=== PATIENT | female | born 1985 | race Two or more races ===

== ENCOUNTER 2022-07-30 11:42 | Inpatient (IN) | payer MEDICAID ==
[~2022-07-30] VITALS: Ht 165.1 cm; Wt 143.1 kg
[2022-07-30] MEDS ORDERED: MORPHINE SULFATE 4 MG/ML SYR/VIAL IV ONE (12:00)
[2022-07-30] MEDS ORDERED: SODIUM CHLORIDE 0.9% 1,000 ML IVB ONE (12:00)
[2022-07-30] MEDS ORDERED: PANTOPRAZOLE 40 MG/10 ML VIAL INJ IV ONE (12:00)
[2022-07-30] MEDS ORDERED: ONDANSETRON HCL 4 MG/2 ML VIAL IV ONE (12:00)
[2022-07-30 13:31] LABS: Basophils # (auto) 0.1 10 ^3/uL (0-0.2); Basophils % (auto) 1.1 % (0.0-2.0); Eosinophils # (auto) 0.1 10 ^3/uL (0-0.8); Eosinophils % (auto) 1.1 % (0.0-7.0); Hematocrit 42.9 % (36.0-46.0); Hemoglobin 14.1 g/dL (12.2-16.2); Lymphocytes # (auto) 2.6 10 ^3/uL (0.4-5.4); Lymphocytes % (auto) 29.1 % (10.0-50.0); Mean Corpuscular Hemoglobin 28.8 pg (28.0-32.0); Mean Corpuscular Hgb Conc. 32.8 g/dL (32.0-36.0); Mean Corpuscular Volume 87.7 fL (80.0-100.0); Monocytes # (auto) 0.5 10 ^3/uL (0-1.3); Monocytes % (auto) 5.2 % (0.0-12.0); Neutrophils # (auto) 5.6 10 ^3/uL (1.6-8.6); Neutrophils % (auto) 63.5 % (37.0-80.0); Nucleated Red Blood Cells % 0.2 %; Red Blood Cells 4.89 10^6/uL (4.0-5.20); Red Cell Distribution Width 14.3 % (11.8-14.3); White Blood Cell 8.8 10^3/uL (4.4-10.8)
[2022-07-30 13:37] LABS: Urine Bacteria FEW /hpf (None Seen); Urine Blood Negative /uL (Negative); Urine Specific Gravity 1.024 (1.001-1.035); Urine WBC 4 /hpf (0 - 5)
[2022-07-30 13:57] LABS: Calcium 9.4 mg/dL (8.5-10.1); Potassium 3.4 mmol/L (3.5-5.1)
[2022-07-30 14:03] LABS: Albumin 3.8 g/dL (3.4-5.0); Bilirubin, Total 0.5 mg/dL (0.2-1.0); Total Protein 8.8 g/dL (6.4-8.2)
[2022-07-30] MEDS ORDERED: POTASSIUM EFFERVESENT TAB 25 MEQ PO ONE (21:15)
[2022-07-30] MEDS ORDERED: ACETAMINOPHEN 325 MG TAB PO PRN (21:15)
[2022-07-30] MEDS ORDERED: KETOROLAC TROMETH 30 MG/ML 1ML VIAL IV ONE (21:15)
[2022-07-30] MEDS ORDERED: HYDROcodone-ACET 5/325MG TAB PO PRN (21:15)
[2022-07-30] MEDS ORDERED: metroNIDAZOLE 500MG/100ML 100 ML IV ONE (21:15)
[2022-07-30] MEDS ORDERED: cefTRIAXone 1GM/50ML D5W 50 ML IV ONE (21:15)
[2022-07-30] MEDS: SODIUM CHLORIDE 0.9% 1,000 ML IV SCH ×2 (21:39→23:34)
[2022-07-30] MEDS: ONDANSETRON HCL 4 MG/2 ML VIAL IV PRN (21:39)
[2022-07-30] MEDS ORDERED: TRAM50TA2 PO (21:49)
[2022-07-30] MEDS ORDERED: METH4PAK3 PO (21:49)
[2022-07-30 22:09] LABS: Cholesterol 206 mg/dL (< 200); HDL Cholesterol 44 mg/dL (40-59); LDL Cholesterol 135 mg/dL (< 100); Triglycerides 154 mg/dL (< 150)
[2022-07-30] MEDS: metroNIDAZOLE 500MG/100ML 100 ML IV SCH (23:27)
[2022-07-30] MEDS: KETOROLAC TROMETH 30 MG/ML 1ML VIAL IV PRN (23:34)
[2022-07-31] MEDS: KETOROLAC TROMETH 30 MG/ML 1ML VIAL IV PRN ×2 (05:14→15:29)
[2022-07-31] MEDS: ONDANSETRON HCL 4 MG/2 ML VIAL IV PRN ×2 (05:14→18:06)
[2022-07-31] MEDS: metroNIDAZOLE 500MG/100ML 100 ML IV SCH ×3 (06:00→23:14)
[2022-07-31 07:23] LABS: Hematocrit 38.1 % (36.0-46.0); Hemoglobin 12.8 g/dL (12.2-16.2); Mean Corpuscular Hgb Conc. 33.5 g/dL (32.0-36.0); Mean Corpuscular Volume 86.6 fL (80.0-100.0); Red Cell Distribution Width 14.4 % (11.8-14.3); White Blood Cell 9.1 10^3/uL (4.4-10.8)
[2022-07-31 07:27] LABS: Band Neutrophils % (manual) 0; Basophils % (manual) 0 (0.0-2.0); Blast Cells 0; Metamyelocytes % 0; Myelocytes % 0; Promyelocytes % 0; Reactive Lymphocytes 0
[2022-07-31 07:38] LABS: Albumin 3.2 g/dL (3.4-5.0); Calcium 8.6 mg/dL (8.5-10.1); Potassium 3.8 mmol/L (3.5-5.1)
[2022-07-31 07:44] LABS: BUN/Creatinine Ratio 18.2 (10.0-20.0); Bilirubin, Total 0.5 mg/dL (0.2-1.0); Total Protein 7.4 g/dL (6.4-8.2)
[2022-07-31 08:10] LABS: Eosinophils % (manual) 3 (0-7); Lymphocytes % (manual) 26 (10.0-50.0); Monocytes % (manual) 4 (0-12)
[2022-07-31 10:00] LABS: INR 1.02 (0.9-1.15); Partial Thromboplastin Time 26.8 sec (24.6-33.4)
[2022-07-31] MEDS: cefTRIAXone 1GM/50ML D5W 50 ML IV SCH (10:16)
[2022-07-31] MEDS: D5W/SOD CHL 0.45%/KCL 20MEQ 1,000 ML IV SCH ×2 (10:26→17:05)
[2022-07-31] MEDS: PANTOPRAZOLE 40 MG/10 ML VIAL INJ IV SCH (10:26)
[2022-07-31] MEDS ORDERED: AMIT-256 PO (16:56)
[2022-07-31] MEDS: SODIUM CHLORIDE 0.9% 1,000 ML IV SCH (17:15)
[2022-07-31] MEDS ORDERED: AMITRIPTYLINE HCL 25 MG TAB PO PRN (17:45)
[2022-07-31 22:00] VITALS: BP 129/129
[2022-08-01] MEDS: D5W/SOD CHL 0.45%/KCL 20MEQ 1,000 ML IV SCH ×2 (03:00→09:45)
[2022-08-01] MEDS: SODIUM CHLORIDE 0.9% 1,000 ML IV SCH ×3 (03:15→23:04)
[2022-08-01 05:00] VITALS: BP 110/63
[2022-08-01] MEDS: metroNIDAZOLE 500MG/100ML 100 ML IV SCH ×3 (06:31→22:56)
[2022-08-01] MEDS ORDERED: ceFAZolin 1GM/50ML 100 ML IV ONE (07:51)
[2022-08-01] MEDS ORDERED: ROCURONIUM 10MG/ML 10ML VIAL IV ONE (07:57)
[2022-08-01] MEDS ORDERED: SUCCINYLCHOLINE CHLORIDE 20 MG/ML 10ML VIAL IV ONE (07:57)
[2022-08-01] MEDS ORDERED: METOCLOPRAMIDE HCL 5MG/ml INJ 2ml VIAL IV PRN (08:15)
[2022-08-01] MEDS ORDERED: HYDROmorphone HCL 2 MG/ML VL/or syr IV PRN (08:15)
[2022-08-01] MEDS ORDERED: MORPHINE SULFATE INJ 2 MG/ml SYRG IV PRN (08:15)
[2022-08-01] MEDS ORDERED: ACCU-CHEK COMFORT CURVE STRIP VI ONE (08:15)
[2022-08-01 08:30] VITALS: BP 121/73
[2022-08-01] MEDS ORDERED: LIDOCAINE 1% HCL (LOCAL ANESTH.) INJ 20ML MDV ONE ×2 (08:31→08:46)
[2022-08-01] MEDS ORDERED: MIDAZOLAM HCL 2MG/2ML 2ml VIAL (1mg/ml) ONE (08:45)
[2022-08-01] MEDS ORDERED: GLYCOPYRROLATE 0.2 MG/ML 1ML VIAL ONE (08:45)
[2022-08-01] MEDS ORDERED: NEOSTIGMINE 1 MG/ML INJ (10mg/10ML VIAL) ONE (08:45)
[2022-08-01] MEDS ORDERED: MEPERIDINE HCL (25 MG/ML) 1ML VIAL ONE (08:45)
[2022-08-01] MEDS ORDERED: fentaNYL CITRATE 100 MCG/2 ML VL ONE ×2 (08:45→11:10)
[2022-08-01] MEDS ORDERED: SODIUM CHLORIDE LOCK 10 ML ONE (08:45)
[2022-08-01] MEDS ORDERED: PROPOFOL 10 MG/ML 20 ML IV ONE (08:46)
[2022-08-01] MEDS ORDERED: ONDANSETRON HCL 4 MG/2 ML VIAL ONE (08:46)
[2022-08-01] MEDS: HYDROmorphone HCL 2 MG/ML VL/or syr IV PRN ×4 (10:22→11:13)
[2022-08-01] MEDS: PANTOPRAZOLE 40 MG/10 ML VIAL INJ IV SCH (11:49)
[2022-08-01] MEDS: cefTRIAXone 1GM/50ML D5W 50 ML IV SCH (11:50)
[2022-08-01 12:22] LABS: Basophils # (auto) 0.1 10 ^3/uL (0-0.2); Basophils % (auto) 0.5 % (0.0-2.0); Eosinophils # (auto) 0.1 10 ^3/uL (0-0.8); Hematocrit 40.8 % (36.0-46.0); Hemoglobin 13.4 g/dL (12.2-16.2); Lymphocytes # (auto) 1.7 10 ^3/uL (0.4-5.4); Lymphocytes % (auto) 13.6 % (10.0-50.0); Mean Corpuscular Hgb Conc. 32.8 g/dL (32.0-36.0); Mean Corpuscular Volume 88.6 fL (80.0-100.0); Monocytes # (auto) 0.3 10 ^3/uL (0-1.3); Monocytes % (auto) 2.8 % (0.0-12.0); Neutrophils # (auto) 10.2 10 ^3/uL (1.6-8.6); Neutrophils % (auto) 82.1 % (37.0-80.0); Nucleated Red Blood Cells % 0.3 %; Red Cell Distribution Width 14.5 % (11.8-14.3); White Blood Cell 12.4 10^3/uL (4.4-10.8)
[2022-08-01] MEDS: KETOROLAC TROMETH 30 MG/ML 1ML VIAL IV PRN ×2 (16:14→22:55)
[2022-08-01 16:17] VITALS: BP 152/99
[2022-08-01 22:00] VITALS: BP 138/82
[2022-08-02 05:00] VITALS: BP 117/64
[2022-08-02] MEDS: metroNIDAZOLE 500MG/100ML 100 ML IV SCH ×3 (05:23→21:06)
[2022-08-02] MEDS: KETOROLAC TROMETH 30 MG/ML 1ML VIAL IV PRN ×3 (05:23→21:06)
[2022-08-02 06:12] LABS: Basophils # (auto) 0 10 ^3/uL (0-0.2); Basophils % (auto) 0.2 % (0.0-2.0); Eosinophils # (auto) 0 10 ^3/uL (0-0.8); Hematocrit 36.6 % (36.0-46.0); Hemoglobin 12.2 g/dL (12.2-16.2); Lymphocytes # (auto) 1.2 10 ^3/uL (0.4-5.4); Mean Corpuscular Hemoglobin 29.2 pg (28.0-32.0); Mean Corpuscular Hgb Conc. 33.4 g/dL (32.0-36.0); Mean Corpuscular Volume 87.5 fL (80.0-100.0); Monocytes # (auto) 0.6 10 ^3/uL (0-1.3); Monocytes % (auto) 4.6 % (0.0-12.0); Neutrophils # (auto) 10.3 10 ^3/uL (1.6-8.6); Neutrophils % (auto) 85.2 % (37.0-80.0); Nucleated Red Blood Cells % 0.1 %; Red Blood Cells 4.18 10^6/uL (4.0-5.20); White Blood Cell 12.1 10^3/uL (4.4-10.8)
[2022-08-02 06:39] LABS: Potassium 4.1 mmol/L (3.5-5.1)
[2022-08-02 06:50] LABS: Albumin 3.4 g/dL (3.4-5.0); BUN/Creatinine Ratio 9.6 (10.0-20.0); Bilirubin, Total 0.6 mg/dL (0.2-1.0); Calcium 9.3 mg/dL (8.5-10.1); Magnesium 2.1 mg/dL (1.6-2.6); Total Protein 7.2 g/dL (6.4-8.2)
[2022-08-02] MEDS: cefTRIAXone 1GM/50ML D5W 50 ML IV SCH (08:23)
[2022-08-02] MEDS: PANTOPRAZOLE 40 MG/10 ML VIAL INJ IV SCH (08:23)
[2022-08-02 09:00] VITALS: BP 131/76
[2022-08-02] MEDS: SODIUM CHLORIDE 0.9% 1,000 ML IV SCH ×2 (09:15→13:17)
[2022-08-02 13:00] VITALS: BP 145/83
[2022-08-02 16:37] VITALS: BP 112/61
[2022-08-02 22:00] VITALS: BP 118/68
[2022-08-03 04:43] VITALS: BP 116/70
[2022-08-03] MEDS: SODIUM CHLORIDE 0.9% 1,000 ML IV SCH (05:34)
[2022-08-03] MEDS: metroNIDAZOLE 500MG/100ML 100 ML IV SCH (05:35)
[2022-08-03 09:00] VITALS: BP 125/74
[2022-08-03] MEDS: cefTRIAXone 1GM/50ML D5W 50 ML IV SCH (09:27)
[2022-08-03] MEDS: PANTOPRAZOLE 40 MG/10 ML VIAL INJ IV SCH (09:30)
== END 2022-08-03 13:03 | disposition home or self-care (01) | DRG 263 ==
LOC: ER 11:42 → OVERFLOW 21:12 → WEST WING 07-31 15:41
PROVIDERS: ADMIT Nurse Practitioner Family; ATTEND Internal Medicine
PROC: 0FT44ZZ Resection of Gallbladder, Percutaneous Endoscopic Approach (ICD-10-PCS; principal; 2022-08-01 08:56)
DX: K80.00 Calculus of gallbladder with acute cholecystitis without obstruction (principal); E44.1 Mild protein-calorie malnutrition; Z68.43 Body mass index [BMI] 50.0-59.9, adult; N39.0 Urinary tract infection, site not specified; E11.9 Type 2 diabetes mellitus without complications; E66.01 Morbid (severe) obesity due to excess calories; E87.6 Hypokalemia; Z79.84 Long term (current) use of oral hypoglycemic drugs; Z88.8 Allergy status to other drugs, medicaments and biological substances
CPT/HCPCS: 36415; 76705; 78226; 80053; 80061; 81001; 81025; 82962; 83036; 83690; 83735; 84443; 85007; 85025; 85027; 85610; 85730; 86850; 86900; 86901; 87081; 96361; 96365; 96366; 96375; 96376; C9113; G0378; J0330; J0690; J0696; J1885; J2001; J2250; J2405; J2704; J3490

== ENCOUNTER 2023-03-09 13:28 | Emergency (ER) | payer MEDICAID ==
[~2023-03-09] VITALS: Ht 165.1 cm; Wt 139.5 kg
[~2023-03-09 13:28] MED LIST: AMIT-256 PO; METH4PAK3 PO; TRAM50TA2 PO
[2023-03-09] MEDS ORDERED: ONDANSETRON HCL 4 MG/2 ML VIAL IV ONE (13:45)
[2023-03-09 14:06] LABS: Basophils # (auto) 0.1 10 ^3/uL (0-0.2); Basophils % (auto) 1.2 % (0.0-2.0); Eosinophils # (auto) 0.1 10 ^3/uL (0-0.8); Eosinophils % (auto) 1.6 % (0.0-7.0); Hematocrit 38.8 % (36.0-46.0); Hemoglobin 12.7 g/dL (12.2-16.2); Lymphocytes # (auto) 2.7 10 ^3/uL (0.4-5.4); Lymphocytes % (auto) 30.3 % (10.0-50.0); Mean Corpuscular Hemoglobin 28.7 pg (28.0-32.0); Mean Corpuscular Hgb Conc. 32.6 g/dL (32.0-36.0); Mean Corpuscular Volume 87.9 fL (80.0-100.0); Monocytes # (auto) 0.5 10 ^3/uL (0-1.3); Monocytes % (auto) 5.6 % (0.0-12.0); Neutrophils # (auto) 5.5 10 ^3/uL (1.6-8.6); Neutrophils % (auto) 61.3 % (37.0-80.0); Nucleated Red Blood Cells % 0.1 %; Red Blood Cells 4.41 10^6/uL (4.0-5.20); Red Cell Distribution Width 14.4 % (11.8-14.3)
[2023-03-09 14:19] LABS: Chloride 104 mmol/L (98-107); Sodium 138 mmol/L (136-145)
[2023-03-09 14:20] LABS: Anion Gap 9 (5-15); Carbon Dioxide 25 mmol/L (20-30); INR 1.04 (0.9-1.15); Partial Thromboplastin Time 27.9 SEC (24.5-34.5); Prothrombin Time 10.9 sec (9.3-11.8)
[2023-03-09 14:21] LABS: Calcium 9.6 mg/dL (8.5-10.1)
[2023-03-09 14:25] LABS: BUN/Creatinine Ratio 14.3 (10.0-20.0); Blood Urea Nitrogen 9 mg/dL (9-23); Glucose 132 mg/dL (74-106)
[2023-03-09 14:27] LABS: Urine Bacteria NONE SEEN /hpf (None Seen); Urine Blood 3+ /uL (Negative); Urine Clarity Clear (Clear); Urine Color Yellow (Yellow); Urine Mucus FEW (None Seen); Urine Protein, UAD TRACE (Negative); Urine Specific Gravity 1.026 (1.001-1.035); Urine Urobilinogen Normal (Negative); Urine WBC 37 /hpf (0 - 5); Urine pH 5.5 (5.0-8.0)
[2023-03-09] MEDS ORDERED: MEDR5TAB28 PO (16:44)
[2023-03-09 16:53] VITALS: BP 125/87; PULSE 91; RESP 17; TEMP 99; O2SAT 99
== END 2023-03-09 16:54 | disposition home or self-care (01) ==
LOC: ER 13:28
DX: N93.8 Other specified abnormal uterine and vaginal bleeding (principal); Z79.01 Long term (current) use of anticoagulants; Z32.02 Encounter for pregnancy test, result negative
CPT/HCPCS: 36415; 76830; 76856; 80048; 81001; 81025; 85025; 85610; 85730; 96374; 99284; J2405

== ENCOUNTER → 2023-03-13 | Outpatient (CLI) | payer MEDICAID ==
[~2023-03-13] MED LIST changes: +MEDR5TAB28 PO
[2023-03-13 09:55] LABS: Basophils # (auto) 0.1 10 ^3/uL (0-0.2); Eosinophils # (auto) 0.1 10 ^3/uL (0-0.8); Eosinophils % (auto) 1.7 % (0.0-7.0); Hematocrit 37.3 % (36.0-46.0); Hemoglobin 12.4 g/dL (12.2-16.2); Lymphocytes # (auto) 2.4 10 ^3/uL (0.4-5.4); Lymphocytes % (auto) 34.6 % (10.0-50.0); Mean Corpuscular Hemoglobin 28.9 pg (28.0-32.0); Mean Corpuscular Hgb Conc. 33.2 g/dL (32.0-36.0); Monocytes # (auto) 0.4 10 ^3/uL (0-1.3); Monocytes % (auto) 6.3 % (0.0-12.0); Neutrophils % (auto) 56.4 % (37.0-80.0); Red Blood Cells 4.29 10^6/uL (4.0-5.20); Red Cell Distribution Width 14.8 % (11.8-14.3); White Blood Cell 7.1 10^3/uL (4.4-10.8)
[2023-03-13 11:25] LABS: Follicle Stimulating Hormone 5.82 IU/L (SEE BELOW); Prolactin 3.8 ng/mL (2.8-29.2)
[2023-03-14 08:06] LABS: Estradiol 42.6 pg/mL (.); Thyroxine (T4) 8.9 ug/dL (4.5-12.0)
== END | disposition home or self-care (01) ==
LOC: LAB 09:32
PROVIDERS: ATTEND Obstetrics & Gynecology
DX: E28.2 Polycystic ovarian syndrome (principal)
CPT/HCPCS: 36415; 82670; 83001; 83002; 83036; 84146; 84403; 84436; 84443; 85025

== ENCOUNTER → 2023-03-21 | Outpatient (CLI) | payer MEDICAID | END | disposition home or self-care (01) | LOC: LAB 12:00 | PROVIDERS: ATTEND Obstetrics & Gynecology | DX: N85.8 Other specified noninflammatory disorders of uterus (principal); D39.0 Neoplasm of uncertain behavior of uterus ==

== ENCOUNTER 2023-05-01 07:28 | Day surgery (SDC) | payer MEDICAID ==
[2023-04-28 11:28] LABS: Urine Epithelial Cast None Seen /hpf (<5)
[2023-04-28 11:33] LABS: Basophils # (auto) 0 10 ^3/uL (0-0.2); Basophils % (auto) 0.7 % (0.0-2.0); Eosinophils # (auto) 0.1 10 ^3/uL (0-0.8); Eosinophils % (auto) 1.7 % (0.0-7.0); Hematocrit 43.1 % (36.0-46.0); Hemoglobin 14.1 g/dL (12.2-16.2); Lymphocytes # (auto) 1.8 10 ^3/uL (0.4-5.4); Lymphocytes % (auto) 28.9 % (10.0-50.0); Mean Corpuscular Hemoglobin 28.8 pg (28.0-32.0); Mean Corpuscular Hgb Conc. 32.7 g/dL (32.0-36.0); Mean Corpuscular Volume 88.2 fL (80.0-100.0); Monocytes # (auto) 0.5 10 ^3/uL (0-1.3); Monocytes % (auto) 8.5 % (0.0-12.0); Neutrophils # (auto) 3.7 10 ^3/uL (1.6-8.6); Neutrophils % (auto) 60.2 % (37.0-80.0); Nucleated Red Blood Cells % 0.1 %; Red Blood Cells 4.89 10^6/uL (4.0-5.20); Red Cell Distribution Width 14.4 % (11.8-14.3); White Blood Cell 6.2 10^3/uL (4.4-10.8)
[2023-04-28 11:47] LABS: INR 1.05 (0.9-1.15); Partial Thromboplastin Time 30.2 SEC (24.5-34.5)
[2023-04-28 11:54] LABS: Alanine Aminotransferase 32 U/L (7-40); Albumin 4.9 g/dL (3.2-4.8); Alkaline Phosphatase 59 U/L (46-116); Anion Gap 7 (5-15); Aspartate Aminotransferase 29 U/L (13-40); BUN/Creatinine Ratio 11.9 (10.0-20.0); Bilirubin, Total 0.7 mg/dL (0.2-1.0); Blood Urea Nitrogen 8 mg/dL (9-23); Carbon Dioxide 23 mmol/L (20-30); Chloride 108 mmol/L (98-107); Glucose 84 mg/dL (74-106); Potassium 4.2 mmol/L (3.5-5.1); Sodium 138 mmol/L (136-145); Total Protein 8.5 g/dL (5.7-8.2)
[2023-04-28 12:28] LABS: Urine Bacteria FEW /hpf (None Seen); Urine Blood 2+ /uL (Negative); Urine Clarity Clear (Clear); Urine Color Yellow (Yellow); Urine Mucus FEW (None Seen); Urine Protein, UAD TRACE (Negative); Urine Specific Gravity 1.023 (1.001-1.035); Urine Urobilinogen Normal (Negative); Urine WBC 6 /hpf (0 - 5); Urine pH 5.5 (5.0-8.0)
[~2023-05-01] VITALS: Ht 165.1 cm; Wt 132.4 kg
[~2023-05-01 07:28] MED LIST changes: +ACET30TA15 PO; -AMIT-256 PO; +DOXAPRAM HCL 20 MG/ML 20ML VIAL INJ IV ONE; +DexAMETHasone SOD PHOS 10MG/1ML VIAL INJ ONE; +KETAMINE 50mg/ML 1ml syringe ONE; +LIDOCAINE 2% JELLY 11ml (GLYDO) ONE; -MEDR5TAB28 PO; +MEGE20TA3 PO; +MEPERIDINE HCL (50 MG/ML) 1 ML VIAL ONE; -METH4PAK3 PO; +MIDAZOLAM HCL 2MG/2ML 2ml VIAL (1mg/ml) ONE; +ONDANSETRON HCL 4 MG/2 ML VIAL ONE; +PROPOFOL 10 MG/ML 20 ML IV ONE; +ROCURONIUM 10MG/ML 10ML VIAL IV ONE; +SODIUM CHLORIDE LOCK 10 ML ONE; +SUCCINYLCHOLINE CHLORIDE 20 MG/ML 10ML VIAL IV ONE; -TRAM50TA2 PO; +fentaNYL CITRATE 100 MCG/2 ML VL ONE
[2023-05-01] MEDS ORDERED: ceFAZolin 2 GM/D5W100ml 100 ML IV ONE (07:43)
[2023-05-01] MEDS ORDERED: ACCU-CHEK COMFORT CURVE STRIP VI ONE (08:15)
[2023-05-01] MEDS ORDERED: MORPHINE SULFATE INJ 2 MG/ml SYRG IV PRN (08:15)
[2023-05-01] MEDS ORDERED: HYDROmorphone HCL 2 MG/ML VL/or syr IV PRN ×2 (08:15)
[2023-05-01] MEDS ORDERED: METOCLOPRAMIDE HCL 5MG/ml INJ 2ml VIAL IV PRN (08:15)
[2023-05-01] MEDS ORDERED: KETOROLAC TROMETH 30 MG/ML 1ML VIAL ONE (08:51)
[2023-05-01 09:09] VITALS: PULSE 108; RESP 13; O2SAT 93
[2023-05-01 09:15] VITALS: TEMP 98.5
[2023-05-01] MEDS ORDERED: IBUP-1455 PO (09:19)
[2023-05-01 09:35] VITALS: BP 137/93; PULSE 94; RESP 15; O2SAT 96
== END 2023-05-01 18:00 | disposition home or self-care (01) ==
LOC: SUR 07:28
PROVIDERS: ATTEND Obstetrics & Gynecology
DX: N92.0 Excessive and frequent menstruation with regular cycle (principal); N85.02 Endometrial intraepithelial neoplasia [EIN]; E11.9 Type 2 diabetes mellitus without complications; E66.9 Obesity, unspecified; Z68.42 Body mass index [BMI] 45.0-49.9, adult; Z88.8 Allergy status to other drugs, medicaments and biological substances; Z79.1 Long term (current) use of non-steroidal anti-inflammatories (NSAID); Z83.3 Family history of diabetes mellitus; Z80.9 Family history of malignant neoplasm, unspecified; Z82.49 Family history of ischemic heart disease and other diseases of the circulatory system; Z98.890 Other specified postprocedural states
CPT/HCPCS: 36415; 58563; 80053; 81001; 81025; 82962; 84702; 85025; 85610; 85730; 86850; 86900; 86901; J0330; J1100; J1885; J2175; J2250; J2405; J2704; J3010

== ENCOUNTER → 2023-12-24 | Outpatient (CLI) | payer MEDICAID ==
[~2023-12-24] MED LIST changes: -ACET30TA15 PO; +CEPH500T PO; +DOCU-94 PO; -DOXAPRAM HCL 20 MG/ML 20ML VIAL INJ IV ONE; -DexAMETHasone SOD PHOS 10MG/1ML VIAL INJ ONE; +IBUP-1455 PO; -KETAMINE 50mg/ML 1ml syringe ONE; -LIDOCAINE 2% JELLY 11ml (GLYDO) ONE; -MEGE20TA3 PO; -MEPERIDINE HCL (50 MG/ML) 1 ML VIAL ONE; -MIDAZOLAM HCL 2MG/2ML 2ml VIAL (1mg/ml) ONE; -ONDANSETRON HCL 4 MG/2 ML VIAL ONE; +PERCOT PO; -PROPOFOL 10 MG/ML 20 ML IV ONE; -ROCURONIUM 10MG/ML 10ML VIAL IV ONE; +SEMA2INJ3 SC; -SODIUM CHLORIDE LOCK 10 ML ONE; -SUCCINYLCHOLINE CHLORIDE 20 MG/ML 10ML VIAL IV ONE; -fentaNYL CITRATE 100 MCG/2 ML VL ONE
[2023-12-24 10:14] LABS: Basophils # (auto) 0.1 10 ^3/uL (0-0.2); Eosinophils # (auto) 0.1 10 ^3/uL (0-0.8); Eosinophils % (auto) 1.3 % (0.0-7.0); Hematocrit 42.2 % (36.0-46.0); Hemoglobin 14.4 g/dL (12.2-16.2); Lymphocytes # (auto) 2.6 10 ^3/uL (0.4-5.4); Lymphocytes % (auto) 31.1 % (10.0-50.0); Mean Corpuscular Hemoglobin 29.5 pg (28.0-32.0); Mean Corpuscular Volume 86.8 fL (80.0-100.0); Monocytes # (auto) 0.6 10 ^3/uL (0-1.3); Monocytes % (auto) 6.7 % (0.0-12.0); Neutrophils # (auto) 4.9 10 ^3/uL (1.6-8.6); Neutrophils % (auto) 59.9 % (37.0-80.0); Platelet Count (auto) 259 10^3/uL (140-450); Red Blood Cells 4.86 10^6/uL (4.0-5.20); Red Cell Distribution Width 14.8 % (11.8-14.3); White Blood Cell 8.2 10^3/uL (4.4-10.8)
[2023-12-24 10:43] LABS: Urine Bacteria FEW /hpf (None Seen); Urine Blood Negative /uL (Negative); Urine Clarity Clear (Clear); Urine Color Light-Yellow (Yellow); Urine Mucus FEW (None Seen); Urine Protein, UAD Negative (Negative); Urine Specific Gravity 1.024 (1.001-1.035); Urine Urobilinogen Normal (Negative); Urine WBC 8 /hpf (0 - 5); Urine pH 5.5 (5.0-9.0)
[2023-12-24 10:57] LABS: Creatinine, Urine 179.38 mg/dL (30.0-125.0)
[2023-12-24 11:01] LABS: Alanine Aminotransferase 26 U/L (7-40); Alkaline Phosphatase 65 U/L (46-116); Anion Gap 6 (5-15); BUN/Creatinine Ratio 9.4 (10.0-20.0); Blood Urea Nitrogen 6 mg/dL (9-23); Calcium 9.9 mg/dL (8.7-10.4); Carbon Dioxide 25 mmol/L (20-30); Chloride 106 mmol/L (98-107); Glucose 85 mg/dL (74-106); LDL Cholesterol 114 mg/dL (< 100); Potassium 4.5 mmol/L (3.5-5.1); Sodium 137 mmol/L (136-145); Triglycerides 94 mg/dL (< 150)
[2023-12-24 11:02] LABS: Albumin 4.6 g/dL (3.2-4.8); Aspartate Aminotransferase 26 U/L (13-40); Cholesterol 170 mg/dL (< 200); HDL Cholesterol 35 mg/dL (40-59); Total Protein 8.1 g/dL (5.7-8.2)
== END | disposition home or self-care (01) ==
LOC: LAB 09:33
PROVIDERS: ATTEND Student in an Organized Health Care Education/Training Program
DX: I10 Essential (primary) hypertension (principal); E55.9 Vitamin D deficiency, unspecified; E11.9 Type 2 diabetes mellitus without complications
CPT/HCPCS: 36415; 80053; 80061; 81001; 82043; 82306; 82570; 83036; 84443; 85025

== ENCOUNTER 2023-12-30 17:23 | Emergency (ER) | payer MEDICAID ==
[~2023-12-30] VITALS: Ht 165.1 cm; Wt 133.9 kg
[2023-12-30 17:34] VITALS: BP 142/90; PULSE 106; RESP 16; O2SAT 94
[2023-12-30 19:34] LABS: Urine Bacteria FEW /hpf (None Seen); Urine Blood Negative /uL (Negative); Urine Clarity Clear (Clear); Urine Color Yellow (Yellow); Urine Mucus FEW (None Seen); Urine Protein, UAD Negative (Negative); Urine Specific Gravity 1.025 (1.001-1.035); Urine Urobilinogen Normal (Negative); Urine WBC 4 /hpf (0 - 5); Urine pH 5.5 (5.0-9.0)
[2023-12-30] MEDS ORDERED: NITR-87 PO (21:42)
[2023-12-30] MEDS ORDERED: KETOROLAC TROMETH 30 MG/ML 1ML VIAL IM ONE (21:45)
== END 2023-12-31 00:22 | disposition left against medical advice (07) ==
LOC: ER 17:23
DX: N39.0 Urinary tract infection, site not specified (principal); E11.9 Type 2 diabetes mellitus without complications; Z98.890 Other specified postprocedural states; Z88.8 Allergy status to other drugs, medicaments and biological substances; Z79.899 Other long term (current) drug therapy
CPT/HCPCS: 74176; 81001

== ENCOUNTER 2024-06-16 09:22 | Emergency (ER) | payer MEDICAID ==
[~2024-06-16 09:22] MED LIST changes: +NITR-87 PO
== END 2024-06-16 09:31 | disposition left against medical advice (07) ==
LOC: ER 09:22
DX: J45.909 Unspecified asthma, uncomplicated (principal); Z53.21 Procedure and treatment not carried out due to patient leaving prior to being seen by health care provider

== ENCOUNTER → 2024-07-07 | Outpatient (CLI) | payer MEDICAID ==
[2024-07-07 10:37] LABS: Urine Bacteria None Seen /hpf (None Seen)
[2024-07-07 10:44] LABS: Basophils # (auto) 0.1 10 ^3/uL (0-0.2); Basophils % (auto) 0.9 % (0.0-2.0); Eosinophils # (auto) 0.1 10 ^3/uL (0-0.8); Hematocrit 42.6 % (36.0-46.0); Hemoglobin 14.3 g/dL (12.2-16.2); Lymphocytes # (auto) 2.4 10 ^3/uL (0.4-5.4); Mean Corpuscular Hemoglobin 29.5 pg (28.0-32.0); Mean Corpuscular Hgb Conc. 33.5 g/dL (32.0-36.0); Monocytes # (auto) 0.6 10 ^3/uL (0-1.3); Monocytes % (auto) 6.2 % (0.0-12.0); Neutrophils # (auto) 5.8 10 ^3/uL (1.6-8.6); Neutrophils % (auto) 64.9 % (37.0-80.0); Platelet Count (auto) 279 10^3/uL (140-450); Red Blood Cells 4.84 10^6/uL (4.0-5.20); Red Cell Distribution Width 14.6 % (11.8-14.3); White Blood Cell 8.9 10^3/uL (4.4-10.8)
[2024-07-07 10:50] LABS: Urine Blood Negative /uL (Negative); Urine Clarity Clear (Clear); Urine Color Light-Yellow (Yellow); Urine Protein, UAD Negative (Negative); Urine Specific Gravity 1.027 (1.001-1.035); Urine Squamous Epithelial Cell FEW /hpf (<5); Urine Urobilinogen Normal (Negative); Urine WBC 54 /HPF (0-5); Urine pH 6.5 (5.0-9.0)
[2024-07-07 11:35] LABS: Creatinine, Urine 182.15 mg/dL (30.0-125.0)
[2024-07-07 11:38] LABS: Alanine Aminotransferase 24 U/L (7-40); Alkaline Phosphatase 66 U/L (46-116); Anion Gap 8 (5-15); BUN/Creatinine Ratio 14.1 (10.0-20.0); Blood Urea Nitrogen 10 mg/dL (9-23); Calcium 10.3 mg/dL (8.7-10.4); Carbon Dioxide 28 mmol/L (20-31); Chloride 101 mmol/L (98-107); Glucose 85 mg/dL (74-106); Potassium 4.1 mmol/L (3.5-5.1); Sodium 137 mmol/L (136-145); Triglycerides 105 mg/dL (< 150)
[2024-07-07 11:39] LABS: Albumin 4.8 g/dL (3.2-4.8); Aspartate Aminotransferase 18 U/L (13-40); Cholesterol 178 mg/dL (< 200); HDL Cholesterol 36 mg/dL (40-59); LDL Cholesterol 128 mg/dL (< 100); Total Protein 8.4 g/dL (5.7-8.2)
== END | disposition home or self-care (01) ==
LOC: LAB 10:25
PROVIDERS: ATTEND Student in an Organized Health Care Education/Training Program
DX: I10 Essential (primary) hypertension (principal); E11.9 Type 2 diabetes mellitus without complications; E55.9 Vitamin D deficiency, unspecified
CPT/HCPCS: 36415; 80053; 80061; 81001; 82043; 82570; 83036; 84443; 85025

== ENCOUNTER 2024-07-22 12:43 | Inpatient (IN) | payer MEDICAID ==
[~2024-07-22] VITALS: Ht 165.1 cm; Wt 132.4 kg
--- NOTE | 2024-07-22 13:29 | ED.PDOC ---
HPI Comments 39y F who presents to the ED for chief complaint of chest pain. Pt states earlier this AM at approx 11 AM, states she started having L sided chest pain radiating to the L shoulder. Pt states the is pain is constant, tightn ess/pressure-like in nature, rating the pain 4/10, with noted increase of pain with deep inspiration and no relieving factors. Pt has associated shortness of breath but otherwise denies diaphoresis, palpitations, nausea, vomiting, fever, cough, or chills. Pt denies these symptoms in the past. Pt has noted history of DM 2 and noted family history of heart problems (father and brother.) Pt otherwise has noted heart rate of 104 but otherwise has BP of 133/95, 02 sat of 96% on room air, temp of 97.5F and RR of 21. Pt otherwise denies any other symptoms at this time. Chief Complaint: Chest Pain Time Seen by MD: 13:16 Primary Care Provider: HUMBERTO Vences Notes: Medications, Allergies Allergies: Coded Allergies: Sumatriptan (Verified Allergy, Intermediate, 07/30/22) Home Meds Active Scripts Nitrofurantoin Monohydrate Mac (Macrobid) 100 Mg Cap, 100 MG PO BID for 7 Days, #14 CAP Prov:RYAN BROWNIGN 12/30/23 Docusate Sodium (Colace) 100 Mg Cap, 1 CAP PO BID, #30 CAP Prov:MYNOR CABRERA DO 07/12/23 Cephalexin Monohydrate (Cephalexin) 500 Mg Tab, 1 TAB PO TID, #30 TAB Prov:MYNOR CABRERA DO 07/12/23 Oxycodone W/ Acetaminophen (Percocet 5/325MG) 1 Tab Tb, 1 TAB PO Q6HP PRN for 5 Days, #20 TAB Prov:MYNOR CABRERA DO 07/12/23 Ibuprofen Micronized (Ibuprofen) 800 Mg Tab, 800 MG PO Q8HPRN PRN, #30 TAB Prov:MYNOR CABRERA DO 05/01/23 Reported Medications Semaglutide (Ozempic) 2 Mg/3 Ml Inj, 0.5 MG SC QWEEKLY, INJ 07/11/23 Information Source: Patient Mode of Arrival: Ambulatory Brought in by: self Past Medical History PAST MEDICAL HISTORY: DM Past Medical History (Other): Obesity Surgical History: BTL, Cholecystectomy, , Tonsillectomy MEDICAL OFFICER PSYCHIATRY History: Ovarian Cysts Family History Family History: Family hx of DM, Family hx of Cancer, Family hx of heart ivanna, Family hx of HTN Family History (Other): Family hx of fibroids Social History Smoker: Non-Smoker Alcohol: Denies ETOH Use Drugs: Denies Drug Use Lives In: Home Constitutional: denies: chills, diaphoresis, fatigue, fever, malaise, sweats, weakness, others EENTM: denies: blurred vision, double vision, ear bleeding, ear discharge, ear drainage, ear pain, ear ringing, eye pain, eye redness, hearing loss, mouth pain, mouth swelling, nasal discharge, nose bleeding, nose congestion, nose pain, photophobia, tearing, throat pain, throat swelling, voice changes, others Respiratory: denies: cough, hemoptysis, orthopnea, SOB at rest, shortness of breath, SOB with excertion, stridor, wheezing, others Cardiovascular: reports: chest pain; denies: dizzy spells, diaphoresis, Dyspnea on exertion, edema, irregular heart beat, left arm pain, lightheadedness, palpitations, PND, syncope, others Gastrointestinal: denies: abdomen distended, abdominal pain, blood streaked bowels, constipated, diarrhea, dysphagia, difficulty swallowing, hematemesis, melena, nausea, poor appetite, poor fluid intake, rectal bleeding, rectal pain, vomiting, others Genitourinary: denies: abnormal vagina bleeding, burning, dyspareunia, dysuria, flank pain, frequency, hematuria, incontinence, pain, , vagina discharge, urgency, others Neurological: denies: dizziness, fainting, headache, left sided numbness, left sided weakness, numbness, paresthesia, pre-existing deficit, right sided numbness, right sided weakness, seizure, speech problems, tingling, tremors, wea kness, others Musculoskeletal: denies: back pain, gout, joint pain, joint swelling, muscle pain, muscle stiffness, neck pain, others Integumetry: denies: bruises, change in color, change in hair/nails, dryness, l aceration, lesions, lumps, rash, wounds, others Allergic/Immunocompromised: denies: Difficulty Healing, Frequent Infections, Hives, Itching, others Hematologic/Lymphatic: denies: anemia, blood clots, easy bleeding, easy bruising, swollen glands, others Endocrine: denies: excessive hunger, excessive sweating, excessive thirst, excessive urination, flushing, intolerance to cold, intolerance to heat, unexplained weight gain, unexplained weight loss, others Psychiatric: denies: anxiety, bipolar disorder, depression, hopeless, panic disorder, schizophrenia, sleepless, suicidal, others All Other Systems: Reviewed and Negative Physical Exam General Appearance: Mild Distress, Obese HEENT: Other (Pupils and face symmetric. Moist mucous membranes) Neck: Full Range of Motion, Normal Inspection Respiratory: Lungs Clear, No Accessory Muscle Use, No Respiratory Distress, Normal Breath Sounds Cardiovascular: No Edema, No JVD, Tachycardia Breast Exam: Deferred Gastrointestinal: Non Tender, Soft Genitalia: Deferred Pelvic: Deferred Rectal: Deferred Extremities: Normal inspection, Normal range of motion, Non-tender, No pedal edema Neurologic: Alert (Oriented x4), Other (Ambulatory.) Cerebellar Function: NOT DONE Reflexes: NOT DONE Skin: Dry, Normal Color, Warm Lymphatic: NOT DONE EKG EKG : Comments Sinus tach, rate 107, normal CT and QRS intervals, QTC 485, left axis deviation, possible old inferior infarct, nonspecific T changes. Was a procedure done? Was a procedure done?: No CP Differential Dx Differential Diagnosis: Angina, Anxiety / Panic Attack, Heart Failure, LA, Pulmonary Embolus, Sinus Tachycardia Differential Diagnosis: Aortic dissection, Chest Wall Pain, Costochondritis, Esophageal reflux/spasm, Gastritis, Pericarditis, Pneumonia X-Ray, Labs, Meds, VS Vital Signs Date Time Temp Pulse Resp B/P (MAP) Pulse Ox O2 Delivery O2 Flow Rate FiO2 07/22/24 13:06 97.5 104 21 133/65 (87) 96 97.5 07/22/24 12:50 107 Lab Test 07/22/24 14:31 07/22/24 13:27 Range/Units Troponin I High Sensitivity Pending < 3 L </=34 ng/L White Blood Count 8.3 4.4-10.8 10^3/uL Red Blood Count 4.62 4.0-5.20 10^6/uL Hemoglobin 13.8 12.2-16.2 g/dL Hematocrit 41.1 36.0-46.0 % Mean Corpuscular Volume 89.0 80.0-100.0 fL Mean Corpuscular Hemoglobin 29.8 28.0-32.0 pg Mean Corpuscular Hemoglobin Concent 33.4 32.0-36.0 g/dL Red Cell Distribution Width 14.3 11.8-14.3 % Platelet Count 251 140-450 10^3/uL Mean Platelet Volume 8.3 6.9-10.8 fL Neutrophils (%) (Auto) 70.0 37.0-80.0 % Lymphocytes (%) (Auto) 22.7 10.0-50.0 % Monocytes (%) (Auto) 4.9 0.0-12.0 % Eosinophils (%) (Auto) 1.2 0.0-7.0 % Basophils (%) (Auto) 1.2 0.0-2.0 % Neutrophils # (Auto) 5.8 1.6-8.6 10 ^3/uL Lymphocytes # (Auto) 1.9 0.4-5.4 10 ^3/uL Monocytes # (Auto) 0.4 0-1.3 10 ^3/uL Eosinophils # (Auto) 0.1 0-0.8 10 ^3/uL Basophils # (Auto) 0.1 0-0.2 10 ^3/uL Nucleated Red Blood Cells 0.1 % Sodium Level 139 136-145 mmol/L Potassium Level 4.1 3.5-5.1 mmol/L Chloride Level 105 98-107 mmol/L Carbon Dioxide Level 25 20-31 mmol/L Anion Gap 9 5-15 Blood Urea Nitrogen 8 L 9-23 mg/dL Creatinine 0.64 0.550-1.02 mg/dL Glomerular Filtration Rate Calc 115 >90 mL/min BUN/Creatinine Ratio 12.5 10.0-20.0 Serum Glucose 104 74-106 mg/dL Calcium Level 9.5 8.7-10.4 mg/dL B-Type Natriuretic Peptide 30.49 0-100 pg/mL [address] [address] Ph: [phone] DIAGNOSTIC IMAGING Diagnostic Imaging Report : [id number] Signed PATIENT: LI BARROS ACCT: [id number] UNIT: [id number] : 1985 LOC: ER ROOM / BED: / AGE / SEX: 39 / F ADM STATUS: REG ER SERVICE ORDERING PHYSICIAN: BALWINDER BERRY MD PROCEDURE(s): CXRP - CHEST PORTABLE REASON: cp ORDER NUMBER(s): [id number], ACCESSION NUMBER(s): [id number] AP portable chest HISTORY: cp Comparison: None FINDINGS: Heart size borderline. No infiltrates or effusions. IMPRESSION: 1. No acute cardiopulmonary pathology ATED BY: HERMAN CARDENAS MD DICTATED DATE/TIME: 07/22/241358 SIGNED BY: HERMAN CARDENAS MD SIGNED DATE/TIME: 07/22/24 135 CC: X-Ray, Labs, Meds, VS Comment 39-year-old female with a history of type 2 diabetes, morbid obesity and family history of heart disease complaining of chest pain radiating to the left shoulder associated with shortness of breath Vitals remarkable for heart rate 107, respiratory rate 21 Exam remarkable for tachycardia Rhythm strip independently interpreted by me: Sinus tach, rate 107, no ectopy. Chest x-ray unremarkable CBC, basic metabolic panel, BNP and 1st troponin unremarkable. D-dimer pending. Patient treated with the following in the ED: Aspirin 325 mg p.o., Nitro-Bid 1/2 inch to chest wall On re-evaluation, patient states symptoms have improved. Vitals were stable. Plan is to admit the patient for serial troponins and Cardiology evaluation. Time of 1ST Reevaluation: 13:45 Reevaluation 1ST: Unchanged Patient Education/Counseling: Diagnosis, Treatment Family Education/Counseling: No Family Present Additional Information -Reviewed patient's previous visit(s): - The following tests were ordered, and results were reviewed by me: trop x3, ekg x3, cbc, bnp, chest x-ray, ua, bmp, urine , - Additional information was gathered from interviewing the following independent Historian: lyubovies - I reviewed and agreed with the following test results read by other provider: radiologist - I discussed treatments and results with medical personnel and: patient Comprehensive systems review obtained and negative except for what is stated in the HPI. Departure 1 Departure Time of Disposition: 14:48 Impression: Primary Impression: Chest pain with high risk for cardiac etiology Disposition: ADMITTED INPATIENT Admit to: Tele Condition: Guarded Critical Care Note Critical Care Time?: No Stability Stability form required: No Heart Score Heart Score: Heart Score Response (Comments) Value History Highly Suspicious 2 EKG Repolarization Disturb 1 Age <45 0 Risk Factors >3 or Hx ASHD 2 Troponin Normal limit 0 Total 5 I personally scribed for BALWINDER BERRY MD ([facility]) on 07/22/24 at 13:29. Electronically submitted by Sadie Shaw ([facility] I personally scribed for BALWINDER BERRY MD ([facility]) on 07/22/24 at 14:08. Electronically submitted by Sadie Shaw ([facility] BALWINDER BERRY MD Jul 22, 2024 13:29
[2024-07-22 13:42] LABS: Basophils # (auto) 0.1 10 ^3/uL (0-0.2); Basophils % (auto) 1.2 % (0.0-2.0); Eosinophils # (auto) 0.1 10 ^3/uL (0-0.8); Eosinophils % (auto) 1.2 % (0.0-7.0); Hematocrit 41.1 % (36.0-46.0); Hemoglobin 13.8 g/dL (12.2-16.2); Lymphocytes # (auto) 1.9 10 ^3/uL (0.4-5.4); Lymphocytes % (auto) 22.7 % (10.0-50.0); Mean Corpuscular Hemoglobin 29.8 pg (28.0-32.0); Mean Corpuscular Hgb Conc. 33.4 g/dL (32.0-36.0); Monocytes # (auto) 0.4 10 ^3/uL (0-1.3); Monocytes % (auto) 4.9 % (0.0-12.0); Neutrophils # (auto) 5.8 10 ^3/uL (1.6-8.6); Nucleated Red Blood Cells % 0.1 %; Platelet Count (auto) 251 10^3/uL (140-450); Red Blood Cells 4.62 10^6/uL (4.0-5.20); Red Cell Distribution Width 14.3 % (11.8-14.3); White Blood Cell 8.3 10^3/uL (4.4-10.8)
[2024-07-22 13:47] LABS: Chloride 105 mmol/L (98-107); Potassium 4.1 mmol/L (3.5-5.1); Sodium 139 mmol/L (136-145)
[2024-07-22 13:48] LABS: Anion Gap 9 (5-15); Carbon Dioxide 25 mmol/L (20-31)
[2024-07-22 13:49] LABS: Calcium 9.5 mg/dL (8.7-10.4)
[2024-07-22 13:53] LABS: Glucose 104 mg/dL (74-106)
[2024-07-22 13:54] LABS: BUN/Creatinine Ratio 12.5 (10.0-20.0)
[2024-07-22 13:55] LABS: Blood Urea Nitrogen 8 mg/dL (9-23)
--- NOTE | 2024-07-22 14:01 | DVH ---
AP portable chest HISTORY: cp Comparison: None FINDINGS: Heart size borderline. No infiltrates or effusions. IMPRESSION: 1. No acute cardiopulmonary pathology
[2024-07-22] MEDS: ASPirin 325 MG TAB PO ONE (15:31)
[2024-07-22] MEDS: NITROGLYCERIN 2% OINT 1GM PKG TD ONE (15:32)
[2024-07-22 15:38] VITALS: PULSE 85; RESP 20; O2SAT 98
[2024-07-22] MEDS: HYDROcodone-ACET 5/325MG TAB PO ONE (15:38)
[2024-07-22 16:19] LABS: Urine Bacteria MANY /hpf (None Seen); Urine Blood Negative /uL (Negative); Urine Clarity Turbid (Clear); Urine Color Light-Yellow (Yellow); Urine Mucus FEW (None Seen); Urine Protein, UAD Negative (Negative); Urine Specific Gravity 1.019 (1.001-1.035); Urine Squamous Epithelial Cell FEW /hpf (<5); Urine Urobilinogen Normal (Negative); Urine WBC 4 /HPF (0-5)
[2024-07-22] MEDS ORDERED: ACETAMINOPHEN 325 MG TAB PO PRN (16:30)
[2024-07-22] MEDS ORDERED: MORPHINE SULFATE 4 MG/ML SYR/VIAL IV PRN (16:30)
[2024-07-22] MEDS ORDERED: NITROGLYCERIN 0.4 MG SL TAB SL PRN ×2 (16:30)
[2024-07-22] MEDS ORDERED: TRAM50TA2 PO (16:51)
[2024-07-22] MEDS ORDERED: HYDR-3682 PO (16:51)
--- NOTE | 2024-07-22 16:53 | DVHHP2 ---
History of Present Illness Reason for Visit: Chest pain History of Present Illness Estee Romero is a 39-year-old female with past medical history of diabetes, ovarian cysts, , cholecystectomy, tonsillectomy, hysterectomy, tubal ligation, and partial salpingectomy who presents to the ED with chest pain that radiates to left shoulder with shortness of breath. Patient reports that the pain started this morning in bed around 11 a.m. states that the pain radiates to left shoulder was 4/10 pain tight pressure-like and constant. Patient reports that she has a family history of PE. Patient denies any fever, chills, lightheadedness, weakness, dizziness, recent trauma or injury, recent sick contacts, recent travels, recent ingestion of spoiled food, abdominal pain, nausea, vomiting, or diarrhea. Endocrine: Diabetes Past Medical History Ovarian cysts Past Surgical History: Cholecystectomy, , Hysterectomy, Other (Partial salpingectomy), Tubal Ligation, Tonsillectomy Family History: Cancer, DM, Hypertension, Other (Father and brother with hypertension, mom brother and grandfather with diabetes, mom aunt and sister with fibroids, sister with rhabdo cancer, and aunt with sarcoma) ALCOHOL: none Drugs: None Lives: with Family Domestic Violence: Neg Review of Systems Respiratory: Shortness of breath Cardiovascular: Chest Pain Allergies: Coded Allergies: Sumatriptan (Verified Allergy, Intermediate, 07/30/22) Exam Vital Signs Vital Signs Date Time Temp Pulse Resp B/P (MAP) Pulse Ox O2 Delivery O2 Flow Rate FiO2 07/22/24 15:38 85 20 98 Room Air* 0 21 07/22/24 15:32 154/109 07/22/24 15:29 97.7 97.7 General Appearance: Alert, Oriented X3, Cooperative, No acute distress HEENT: Atraumatic, PERRLA, EOMI, Mucous membr. moist/pink Respiratory: Clear to auscultation, Normal air movement Cardiovascular: Normal S1, Normal S2, No murmurs Abdominal: Normal bowel sounds, Soft, No tenderness, No hepatospenomegaly, No masses Extremities: No clubbing, No cyanosis, No edema, Normal pulses, No tenderness/swelling Skin: No rashes, No breakdown, No significant lesion Neuro: Normal gait, Normal speech, Strength at 5/5 X4 ext, Normal tone, Sensation intact Psych/Mental Status: Mental status NL, Mood NL Labs/Xrays Labs Test 07/22/24 15:36 07/22/24 14:31 07/22/24 13:27 Range/Units Urine Color Light-yellow Yellow Urine Clarity Turbid H Clear Urine pH 6.0 5.0-9.0 Urine Specific [place] 1.019 1.001-1.035 Urine Protein Negative Negative Urine Ketones Negative Negative Urine Blood Negative Negative /uL Urine Nitrite 2+ H Negative Urine Bilirubin Negative Negative Urine Urobilinogen Normal Negative mg/dL Urine Leukocyte Esterase 1+ Negative /uL Urine RBC 1 0 - 4 /hpf Urine Microscopic WBC 4 0-5 /HPF Urine Squamous Epithelial Cells Few <5 /hpf Urine Bacteria Many H None Seen /hpf Urine Mucus Few None Seen Urine Glucose Normal Normal mg/dL Troponin I High Sensitivity < 3 L </=34 ng/L White Blood Count 8.3 4.4-10.8 10^3/uL Red Blood Count 4.62 4.0-5.20 10^6/uL Hemoglobin 13.8 12.2-16.2 g/dL Hematocrit 41.1 36.0-46.0 % Mean Corpuscular Volume 89.0 80.0-100.0 fL Mean Corpuscular Hemoglobin 29.8 28.0-32.0 pg Mean Corpuscular Hemoglobin Concent 33.4 32.0-36.0 g/dL Red Cell Distribution Width 14.3 11.8-14.3 % Platelet Count 251 140-450 10^3/uL Mean Platelet Volume 8.3 6.9-10.8 fL Neutrophils (%) (Auto) 70.0 37.0-80.0 % Lymphocytes (%) (Auto) 22.7 10.0-50.0 % Monocytes (%) (Auto) 4.9 0.0-12.0 % Eosinophils (%) (Auto) 1.2 0.0-7.0 % Basophils (%) (Auto) 1.2 0.0-2.0 % Neutrophils # (Auto) 5.8 1.6-8.6 10 ^3/uL Lymphocytes # (Auto) 1.9 0.4-5.4 10 ^3/uL Monocytes # (Auto) 0.4 0-1.3 10 ^3/uL Eosinophils # (Auto) 0.1 0-0.8 10 ^3/uL Basophils # (Auto) 0.1 0-0.2 10 ^3/uL Nucleated Red Blood Cells 0.1 % D-Dimer, Quantitative 0.62 H 0.0-0.49 mg/L FEU Sodium Level 139 136-145 mmol/L Potassium Level 4.1 3.5-5.1 mmol/L Chloride Level 105 98-107 mmol/L Carbon Dioxide Level 25 20-31 mmol/L Anion Gap 9 5-15 Blood Urea Nitrogen 8 L 9-23 mg/dL Creatinine 0.64 0.550-1.02 mg/dL Glomerular Filtration Rate Calc 115 >90 mL/min BUN/Creatinine Ratio 12.5 10.0-20.0 Serum Glucose 104 74-106 mg/dL Calcium Level 9.5 8.7-10.4 mg/dL B-Type Natriuretic Peptide 30.49 0-100 pg/mL AP portable chest HISTORY: cp Comparison: None FINDINGS: Heart size borderline. No infiltrates or effusions. IMPRESSION: 1. No acute cardiopulmonary pathology Assessment/Plan Assessment/Plan Assessment Chest pain Sinus tachycardia UTI Elevated D-dimer Rule out PE History of diabetes History of ovarian cysts History of History of cholecystectomy History of tonsillectomy History of hysterectomy History of tubal ligation History of partial salpingectomy Plan Admit to tele UA Chest x-ray noted HCG Antiemetics Pain management IV antibiotics-ceftriaxone Aspirin D-dimer CTA chest Nitro BNP EKG Troponins negative x2 Statin UDS Hemoglobin A1c ISS and Accu-Cheks Lipid panel Diet Echo ordered Home medications reconciled DVT prophylaxis-Lovenox PUD prophylaxis-Protonix Discussed plan of care with patient and nurse Plan discussed with: Patient My Orders Orders - MERRITT BRISENO BALL HOLDER Procedure Category Date Status Time Ceftriaxone Ivpb PHA 07/22/24 Transmitted Rocephin 16:[address] 07/22/24 Logged Contrast 16:28 Admit ADMIT 07/22/24 Transmitted 16:28 Code Status CODE 07/22/24 Transmitted 16:28 Vital Signs MUSTAPHA 07/22/24 Transmitted 16:28 Respiratory Equipment Assistant MUSTAPHA 07/22/24 Transmitted 16:28 Cardiac DIET 07/22/24 Transmitted Diet-2gna,Lofat,Lochol Dinner Aspirin Tablet PHA 07/23/24 Transmitted 10:00 Lipitor 40mg Hs PHA 07/22/24 Transmitted Hi-Intensity 22:00 Morphine Sulfate PHA 07/22/24 Transmitted Injection 16:30 Acetaminophen Tablet PHA 07/22/24 Transmitted (Tylenol Tablet) 16:30 Complete Blood Count LAB 07/22/24 Transmitted 04:00 Basic Metabolic Panel LAB 07/22/24 Transmitted 04:00 Magnesium LAB 07/23/24 Verified 04:00 Lipid Panel LAB 07/23/24 Verified 04:00 Echo 2d Mode Cardiac US 07/22/24 Logged DOP 16:28 Nitroglycerin PHA 07/22/24 Transmitted Sublingual (Ntrostat 16:30 Ondansetron Hcl PHA 07/22/24 Transmitted (Zofran) 16:30 Electrocardigram EKG 07/23/24 Logged 04:00 Troponin-I Hs LAB 07/22/24 Transmitted 16:28 Cardiac MUSTAPHA 07/22/24 Transmitted Rehabilitation - Outpa Nitroglycerin PHA 07/22/24 Transmitted Sublingual (Ntrostat 16:30 Morphine Sulfate PHA 07/22/24 Transmitted Injection 16:30 Stat Ekg For Chest MUSTAPHA 07/22/24 Transmitted Pain 16:28 Notify Md Of Changes MUSTAPHA 07/22/24 Transmitted From Base 16:28 Customer Service Trainer For MUSTAPHA 07/22/24 Transmitted 24 Hours 16:28 Emergency Dysrhythmia MUSTAPHA 07/22/24 Transmitted Protocol 16:28 Rhythm Strips Once MUSTAPHA 07/22/24 Transmitted Every Shift 16:28 Oxygen By Nasal RT 07/22/24 Transmitted Cannula 16:28 Drug Screen LAB 07/22/24 Transmitted 16:28 Hemoglobin A1c LAB 07/22/24 Transmitted 16:28 Enoxaparin Sodium PHA 07/22/24 Transmitted (Lovenox) 16:30 (Nf) Hydroxyzine Hcl PHA 07/23/24 Verified 10:00 Date of Service: Jul 22, 2024 Billing Provider: MERRITT BRISENO Common Visit Codes: [id number] INP/OBS CARE (HIGH) MERRITT BRISENO Jul 22, 2024 16:53
[2024-07-22] MEDS ORDERED: DEXTROSE (50%) 50ML SYRG IV PRN (17:00)
[2024-07-22] MEDS: IOHEXOL 350 MG/ML 100ML IJ ONE ×2 (17:28→22:16)
[2024-07-22 17:49] LABS: Amphetamine Screen, Urine Neg (NEGATIVE); Barbiturate Scree,Urine Neg (NEGATIVE); Benzodiazephine Screen, Urine Neg (NEGATIVE); Cannabinoid Screen, Urine Neg (NEGATIVE); Cocaine Screen, Urine Neg (NEGATIVE); Opiate Scree,Urine Neg (NEGATIVE); Phencyclidine Screen, Urine Neg (NEGATIVE)
--- NOTE | 2024-07-22 18:58 | ECG ---
[facility] Test Date: 2024-07-22 Test Time: 12:50:31 Pat Name: LI BARROS Department: ER Room: [address] [place] [address] A Gender: F Cmm Operator: SUSI : 1985 Requested By: BRIAN RASMUSSEN Order Number: [id number] Reading MD: Lasha Roberts Measurements Intervals [place] Rate: 107 P: 60 MT: 161 QRS: -30 QRSD: 90 T: 46 QT: 363 QTc: 485 Interpretive Statements Sinus tachycardia Left axis deviation Low voltage, precordial leads Abnormal R-wave progression, late transition ST elevation, consider inferior injury Baseline wander in lead(s) II,III,aVF,V3,V5,V6 Electronically Signed On 07-23-2024 13:45:19 PDT by Lasha Roberts Please click the below link to view image of tracing.
--- NOTE | 2024-07-22 19:50 | DVH ---
Procedure: CT CT ANGIO CHEST CONTRAST Reason for study/Clinical History: ro pe Comparison Study: None available at time of dictation. Exam Date: 07/22/2024 07:00 PM Radiation Dose Information: CT Dose: CTDI volume is 29.2 mGy. Dose-length product is 993.48 mGy*cm Contrast: Type of contrast: Omnipaque 350 Contrast inject: 70 mL Contrast wasted:0 TECHNIQUE: After the uneventful administration of intravenous contrast intravenously, CT imaging was performed through the chest. Coronal and sagittal reformations were performed by the technologist. Sagittal and coronal MIP images were created and submitted for interpretation. FINDINGS: Lower Neck: Visualized portions of the thyroid gland are unremarkable. Aorta and Vasculature: Normal caliber of thoracic aorta. Lymph Nodes: No enlarged intrathoracic lymph nodes. Mediastinum: Heart size is normal. There is no pericardial effusion. The esophagus is unremarkable. Lungs: No focal consolidation, pleural effusion or significant pneumothorax. No suspicious pulmonary nodule or mass. Musculoskeletal: No acute osseous abnormality. Upper abdomen: Limited portions of the upper abdomen are unremarkable. IMPRESSION: 1. No findings of pulmonary embolus or pulmonary artery hypertension. 2. All CT scans at this medical facility are performed using dose modulation techniques as appropriat e to a performed exam including the following: Automated exposure control was utilized; adjustment of the MA and/or KV according to patient size; and use of iterative reconstruction technique.
[2024-07-22] MEDS: ACCU-CHEK COMFORT CURVE STRIP VI SCH (22:00)
[2024-07-22] MEDS: InsuLIN REG 1unit/0.01ml Soln (100units/ml) SC SCH (22:00)
[2024-07-22] MEDS: ATORVASTATIN 20 MG TAB PO SCH (22:00)
[2024-07-22] MEDS: PANTOPRAZOLE 40 MG/10 ML VIAL INJ IV SCH (23:30)
[2024-07-22] MEDS: cefTRIAXone 1GM/50ML D5W 50 ML IV SCH (23:31)
[2024-07-22] MEDS: ENOXAPARIN SOD 40 MG/0.4 ML SYRINGE SC SCH (23:31)
[2024-07-22] MEDS: MORPHINE SULFATE INJ 2 MG/ml SYRG IV PRN (23:37)
[2024-07-23] MEDS: ONDANSETRON HCL 4 MG/2 ML VIAL IV PRN (01:35)
[2024-07-23 05:41] LABS: Basophils # (auto) 0.1 10 ^3/uL (0-0.2); Basophils % (auto) 0.8 % (0.0-2.0); Eosinophils # (auto) 0.1 10 ^3/uL (0-0.8); Eosinophils % (auto) 1.6 % (0.0-7.0); Hematocrit 38.4 % (36.0-46.0); Lymphocytes # (auto) 2.6 10 ^3/uL (0.4-5.4); Lymphocytes % (auto) 37.1 % (10.0-50.0); Mean Corpuscular Hemoglobin 29.8 pg (28.0-32.0); Mean Corpuscular Hgb Conc. 33.9 g/dL (32.0-36.0); Monocytes # (auto) 0.5 10 ^3/uL (0-1.3); Neutrophils # (auto) 3.8 10 ^3/uL (1.6-8.6); Neutrophils % (auto) 53.5 % (37.0-80.0); Nucleated Red Blood Cells % 0.1 %; Platelet Count (auto) 250 10^3/uL (140-450); Red Blood Cells 4.36 10^6/uL (4.0-5.20); Red Cell Distribution Width 14.8 % (11.8-14.3); White Blood Cell 7.1 10^3/uL (4.4-10.8)
[2024-07-23 05:42] LABS: Chloride 105 mmol/L (98-107); Potassium 3.9 mmol/L (3.5-5.1); Sodium 139 mmol/L (136-145)
[2024-07-23 05:43] LABS: Anion Gap 9 (5-15); Calcium 9.2 mg/dL (8.7-10.4); Carbon Dioxide 25 mmol/L (20-31)
[2024-07-23 05:48] LABS: Glucose 85 mg/dL (74-106)
[2024-07-23 05:49] LABS: Blood Urea Nitrogen 9 mg/dL (9-23); LDL Cholesterol 97 mg/dL (< 100); Magnesium 1.9 mg/dL (1.6-2.6)
[2024-07-23 05:50] LABS: Cholesterol 151 mg/dL (< 200)
[2024-07-23 05:56] LABS: HDL Cholesterol 26 mg/dL (40-59); Triglycerides 257 mg/dL (< 150)
[2024-07-23] MEDS: KETOROLAC TROMETH 30 MG/ML 1ML VIAL IV ONE (06:47)
[2024-07-23 08:00] VITALS: PULSE 78; RESP 14; O2SAT 100
[2024-07-23] MEDS: ASPirin 81 mg TAB PO SCH (10:33)
[2024-07-23] MEDS: hydrOXYzine 25 MG TAB or CAP PO SCH (10:33)
--- NOTE | 2024-07-23 12:44 | DVHPNRES ---
Progress Note Date Seen: Jul 23, 2024 Resident Creating Document: IRVIN GANT RESIDENT Medical Necessity Reason Pt with a Central, PICC or Fol: No Subjective Review of Systems This is a 39-year-old female with past medical history of type 2 diabetes mellitus, status post total abdominal hysterectomy presented to the ED with a complaint of chest pain for few hours prior to this admission. the patient stated that chest pain started suddenly yesterday which was left substernal in region, 6/10 sharp pain radiate to the jaw and left shoulder and aggravated during walking and deep breathing and relieved by taking rest and lying down. she mentioned it is the 1st time she have this kind of chest pain. She also mentioned urgency and burning sensation in the urine for last 2 days. She denies any flu-like symptoms recently, recent traveling, shortness of breath, sweating, dizziness, blurred vision, abdominal pain, nausea, vomiting or any change in the bowel and bladder habit. Constitutional: No: Fever, Chills, Sweats, Weakness, Malaise, Other Eyes: No: Pain, Vision change, Conjunctivae inflammation, Eyelid inflammation, Other, Redness ENT: No: Ear pain, Ear discharge, Nose pain, Nose discharge, Nose congestion, Mouth pain, Mouth swelling, Throat pain, Throat swelling, Other Respiratory: Shortness of breath, improving No: Cough, Dry,Wheezing, Hemoptysis, Pleuritic Pain, Sputum, Wheezing, Other Cardiovascular: Chest Pain, No Palpitations, Orthopnea, Paroxysmal Noc. Dyspnea, Edema, Lt Headedness, Other Gastrointestinal: No: Nausea, Vomiting, Abdominal Pain, Diarrhea, Constipation, Melena, Hematochezia, Other Musculoskeletal: No: other, neck pain, shoulder pain, arm pain, back pain, hand pain, leg pain, foot pain Neurological:; No: Weakness, Numbness, Incoordination, Change in speech, Confusion, Seizures Objective vital signs Vital Sign Date Time Temp Pulse Resp B/P (MAP) Pulse Ox O2 Delivery O2 Flow Rate FiO2 07/23/24 10:00 85 20 115/85 (95) 97 07/23/24 08:00 Nasal Cannula* 2 28 07/23/24 08:00 98.6 98.6 medications Current Medications Medications Dose Ordered Sig/Mayank Route Start Time Stop Time Status Last Admin Dose Admin Ceftriaxone Sodium 50 ml @ 100 mls/hr DAILY@09 IV 07/22/24 16:30 07/23/24 10:31 100 MLS/HR Aspirin 81 mg DAILY PO 07/23/24 10:00 07/23/24 10:33 81 MG Atorvastatin Calcium 40 mg HS PO 07/22/24 22:00 Hold Morphine Sulfate 2 mg Q30MP PRN IV 07/22/24 16:30 UNV Acetaminophen 650 mg Q6HP PRN PO 07/22/24 16:30 Nitroglycerin 0.4 mg Q5MINP PRN SL 07/22/24 16:30 UNV Ondansetron HCl 4 mg Q4HP PRN IV 07/22/24 16:30 07/23/24 09:25 4 MG Nitroglycerin 0.4 mg Q5MINP PRN SL 07/22/24 16:30 Morphine Sulfate 2 mg Q30M PRN IV 07/22/24 16:30 07/23/24 09:27 2 MG Enoxaparin Sodium 40 mg DAILY SC 07/22/24 16:30 07/23/24 10:33 40 MG Hydroxyzine Pamoate 25 mg DAILY PO 07/23/24 10:00 07/23/24 10:33 25 MG Diagnostic Test (Pha) 1 strip ACHS 07/22/24 17:00 07/23/24 12:26 1 STRIP Insulin Human Regular ACHS SC 07/22/24 17:00 Dextrose 50 ml UD PRN IV 07/22/24 17:00 Pantoprazole Sodium 40 mg DAILY IV 07/22/24 17:15 07/23/24 10:33 40 MG Examination Physical examination: General Appearance: Alert, Oriented X3, Cooperative, No acute distress HEENT: Atraumatic, PERRLA, EOMI, Mucous membrane moist/pink Respiratory: Clear to auscultation, Normal air movement Cardiovascular: Regular rate, Normal S1, Normal S2, No murmurs, no chest wall tenderness Abdominal: Normal bowel sounds, Soft, No tenderness, No hepatospenomegaly, No masses Extremities: No clubbing, No cyanosis, No edema, Normal pulses, No tenderness/swelling Skin: No rashes, No breakdown, No significant lesion Neuro: Normal gait, Normal speech, Strength at 5/5 X4 ext, Normal tone, Sensation intact, Cranial nerves 3-12 NL, Reflexes 2+ Psych/Mental Status: Mental status NL, Mood NL laboratory and microbiology Laboratory Tests 07/23/24 04:51 Test 07/23/24 04:51 Range/Units Serum Glucose 85 74-106 mg/dL Labs and/or images reviewed: Labs reviewed by me, Image(s) reviewed by me Problem List/Assessment/Plan Problem List/Assessment/Plan Assessment and plan: # Chest pain ruled out ACS # Chest pain likely due to pleuritis # Pulmonary embolism ruled out - EKG revealed normal sinus rhythm and troponins were unremarkable - Chest x-ray demonstrated no acute intrathoracic abnormality - CT angio excluded PE and pulmonary hypertension - Pending echo - Recommended outpatient stress test after discharge. - Patient is diabetic and 10 year ASCVD risk score is 3.3% - Aspirin 81 mg daily and simvastatin 20 mg at HS - Ibuprofen 400 mg Q 8 p.r.n. # Acute complicated cystitis - U/A was consistent with UTI - ordered urine bacterial culture - IV ceftriaxone 1 g daily # GERD - Protonix 40 mg IV daily # DVT prophylaxis - Lovenox 40 mg sc daily Goal of care discussed with the patient for more than 20 minutes full code Plan discussed with Dr. Fitzgerald Plan discussed with: Patient, Other My Orders My Orders Orders - IRVIN GANT Procedure Category Date Status Time Urine Bacterial SENTHIL 07/23/24 In Process Culture 08:34 Date of Service: Jul 23, 2024 Billing Provider: KIRSTY FITZGERALD MD Common Visit Codes: [id number] INP/OBS CARE(HIGH) IRVIN GANT RESIDENT Jul 23, 2024 12:44 KIRSTY FITZGERALD MD Jul 23, 2024 16:57
[2024-07-23] MEDS ORDERED: IBUPROFEN 400 MG TAB PO PRN (16:00)
[2024-07-23 17:39] VITALS: BP 138/93; PULSE 92; RESP 16; TEMP 98.4; O2SAT 95
[2024-07-23 17:59] VITALS: PULSE 75; O2SAT 98
--- NOTE | 2024-07-23 19:00 | ECG ---
[facility] Test Date: 2024-07-23 Test Time: 09:26:08 Pat Name: LI BARROS Department: ED Room: 0290T Gender: [place] [facility] Coordinator: RITCHIE : 1985 Requested By: MERRITT BRISENO Order Number: [id number] Reading MD: Measurements Intervals [place] Rate: 83 P: 54 WI: 177 QRS: -17 QRSD: 92 T: 51 QT: 385 QTc: 453 Interpretive Statements Sinus rhythm Borderline left axis deviation Low voltage, precordial leads Please click the below link to view image of tracing.
[2024-07-23 20:00] VITALS: PULSE 66; PULSE 97; RESP 16
[2024-07-23 21:00] VITALS: BP 135/89; PULSE 88; RESP 17; TEMP 98.1; O2SAT 97
[2024-07-23] MEDS ORDERED: ATORVASTATIN 20 MG TAB PO SCH (22:00)
[2024-07-24 01:00] VITALS: BP 132/87; PULSE 99; RESP 18; TEMP 97.9; O2SAT 96
--- NOTE | 2024-07-24 01:08 | DVHSR ---
APPROVED REPORT EXAM: Two-dimensional and M-mode echocardiogram with Doppler and color Doppler. Blood Pressure: 130/84 mmHg INDICATION Chest Pain RISK FACTORS Height: 65, Weight: 287 DIMENSIONS LVDd4.3 (3.8-5.7cm)LA (2D)4.2 (1.9-4.0cm)Aortic Root3.3 (2.0-3.7cm) LVDs3.0 (2.5-4.0cm)LA (MM) (1.9-4.0cm)Aortic Cusp Exc2.0 (1.5-2.0cm) EF (%) 56.0 (55-70%)Rt. Atrium3.3 (1.9-4.0cm)Asc. Aorta cm Mitral Valve MitralMitral Stenosis E wave0.94m/sMV Mean GR.mmHg A wave0.87m/sMV Peak GR.31mmHg E/A ratio1.12D MVAcm2 DECEL [id number] 1/2 [id number] IVRTmsDop MVA4.04cm2 Aortic Valve Aortic ValveAortic Stenosis V10.93m/Willy Mean GR.5mmHg V21.51m/Willy Peak GR.9mmHg LVOT Diameter2.2 (1.8-2.4cm)Doppler AVA2.34cm2 AI P 1/2 Seeo811.39ms Pulmonic Valve V21.02m/s Tricuspid Valve TR Velocity1.17m/s [id number] Conclusion NORMAL LV EF OF 65% NORMAL VALVES NORMAL RV FUNCTION NO EFFUSION
[2024-07-24 05:00] VITALS: BP 119/69; PULSE 89; RESP 17; TEMP 98.3; O2SAT 99
[2024-07-24 08:00] VITALS: PULSE 79; RESP 18; O2SAT 98
[2024-07-24 09:00] VITALS: BP 139/89; PULSE 86; RESP 17; TEMP 99.2; O2SAT 93
[2024-07-24 13:00] VITALS: BP 135/91; PULSE 94; RESP 16; TEMP 97.7; O2SAT 91
--- NOTE | 2024-07-24 13:18 | DVHPN2 ---
Cardiovascular: Chest Pain Respiratory: Shortness of breath Objective Vitals Vital Signs Date Time Temp Pulse Resp B/P (MAP) Pulse Ox O2 Delivery O2 Flow Rate FiO2 07/24/24 09:00 99.2 86 17 139/89 (106) 93 99.2 07/24/24 08:00 Room Air* 0 21 Intake/Output Intake and Output 07/24/24 07:00 Intake Total 700 ml Balance 700 ml Intake Oral 700 ml # Voids 2 Medications Current Medications Medications Dose Ordered Sig/Mayank Route Start Time Stop Time Status Last Admin Dose Admin Ceftriaxone Sodium 50 ml @ 100 mls/hr DAILY@09 IV 07/22/24 16:30 07/24/24 11:59 100 MLS/HR Aspirin 81 mg DAILY PO 07/23/24 10:00 07/24/24 10:21 81 MG Atorvastatin Calcium 40 mg HS PO 07/22/24 22:00 Hold Morphine Sulfate 2 mg Q30MP PRN IV 07/22/24 16:30 UNV Nitroglycerin 0.4 mg Q5MINP PRN SL 07/22/24 16:30 UNV Ondansetron HCl 4 mg Q4HP PRN IV 07/22/24 16:30 07/23/24 09:25 4 MG Nitroglycerin 0.4 mg Q5MINP PRN SL 07/22/24 16:30 Morphine Sulfate 2 mg Q30M PRN IV 07/22/24 16:30 07/23/24 09:27 2 MG Enoxaparin Sodium 40 mg DAILY SC 07/22/24 16:30 07/24/24 10:20 40 MG Hydroxyzine Pamoate 25 mg DAILY PO 07/23/24 10:00 07/23/24 10:33 25 MG Diagnostic Test (Pha) 1 strip ACHS 07/22/24 17:00 07/24/24 11:03 1 STRIP Insulin Human Regular ACHS SC 07/22/24 17:00 Dextrose 50 ml UD PRN IV 07/22/24 17:00 Pantoprazole Sodium 40 mg DAILY IV 07/22/24 17:15 07/23/24 10:33 40 MG Ibuprofen 400 mg Q8HP PRN PO 07/23/24 16:00 Laboratory Results Laboratory Tests 07/23/24 04:51 Urinalysis Test 07/22/24 15:36 Urine Color Light-yellow (Yellow) Urine Clarity Turbid (Clear) H Urine pH 6.0 (5.0-9.0) Urine Specific [place] 1.019 (1.001-1.035) Urine Protein Negative (Negative) Urine Ketones Negative (Negative) Urine Blood Negative /uL (Negative) Urine Nitrite 2+ (Negative) H Urine Bilirubin Negative (Negative) Urine Urobilinogen Normal mg/dL (Negative) Urine Leukocyte Esterase 1+ /uL (Negative) Urine RBC 1 /hpf (0 - 4) Urine Microscopic WBC 4 /HPF (0-5) Urine Squamous Epithelial Cells Few /hpf (<5) Urine Bacteria Many /hpf (None Seen) H Urine Mucus Few (None Seen) Urine Glucose Normal mg/dL (Normal) PIPPA RAGSDALE MD Jul 24, 2024 13:18
--- NOTE | 2024-07-24 14:57 | DVHDS2 ---
Discharge Summary Date of Admission Jul 22, 2024 at 16:28 Date of Discharge: Jul 24, 2024 Admitting Diagnosis # Chest pain ruled out ACS # Chest pain likely due to pleuritis # Pulmonary embolism ruled out # Acute complicated cystitis # GERD Labs/Diagnostic Data: Laboratory Results Test 07/24/24 11:00 07/23/24 04:51 07/22/24 17:10 07/22/24 15:36 POC Glucose 130 mg/dl (70-106) White Blood Count 7.1 10^3/uL (4.4-10.8) Red Blood Count 4.36 10^6/uL (4.0-5.20) Hemoglobin 13.0 g/dL (12.2-16.2) Hematocrit 38.4 % (36.0-46.0) Mean Corpuscular Volume 88.0 fL (80.0-100.0) Mean Corpuscular Hemoglobin 29.8 pg (28.0-32.0) Mean Corpuscular Hemoglobin Concent 33.9 g/dL (32.0-36.0) Red Cell Distribution Width 14.8 % (11.8-14.3) Platelet Count 250 10^3/uL (140-450) Mean Platelet Volume 8.7 fL (6.9-10.8) Neutrophils (%) (Auto) 53.5 % (37.0-80.0) Lymphocytes (%) (Auto) 37.1 % (10.0-50.0) Monocytes (%) (Auto) 7.0 % (0.0-12.0) Eosinophils (%) (Auto) 1.6 % (0.0-7.0) Basophils (%) (Auto) 0.8 % (0.0-2.0) Neutrophils # (Auto) 3.8 10 ^3/uL (1.6-8.6) Lymphocytes # (Auto) 2.6 10 ^3/uL (0.4-5.4) Monocytes # (Auto) 0.5 10 ^3/uL (0-1.3) Eosinophils # (Auto) 0.1 10 ^3/uL (0-0.8) Basophils # (Auto) 0.1 10 ^3/uL (0-0.2) Nucleated Red Blood Cells 0.1 % Sodium Level 139 mmol/L (136-145) Potassium Level 3.9 mmol/L (3.5-5.1) Chloride Level 105 mmol/L (98-107) Carbon Dioxide Level 25 mmol/L (20-31) Anion Gap 9 (5-15) Blood Urea Nitrogen 9 mg/dL (9-23) Creatinine 0.60 mg/dL (0.550-1.02) Glomerular Filtration Rate Calc 116 mL/min (>90) BUN/Creatinine Ratio 15.0 (10.0-20.0) Serum Glucose 85 mg/dL (74-106) Calcium Level 9.2 mg/dL (8.7-10.4) Magnesium Level 1.9 mg/dL (1.6-2.6) Triglycerides Level 257 mg/dL (< 150) Cholesterol Level 151 mg/dL (< 200) LDL Cholesterol 97 mg/dL (< 100) HDL Cholesterol 26 mg/dL (40-59) Troponin I High Sensitivity < 3 ng/L (</=34) Urine Color Light-yellow (Yellow) Urine Clarity Turbid (Clear) Urine pH 6.0 (5.0-9.0) Urine Specific [place] 1.019 (1.001-1.035) Urine Protein Negative (Negative) Urine Ketones Negative (Negative) Urine Blood Negative /uL (Negative) Urine Nitrite 2+ (Negative) Urine Bilirubin Negative (Negative) Urine Urobilinogen Normal mg/dL (Negative) Urine Leukocyte Esterase 1+ /uL (Negative) Urine RBC 1 /hpf (0 - 4) Urine Microscopic WBC 4 /HPF (0-5) Urine Squamous Epithelial Cells Few /hpf (<5) Urine Bacteria Many /hpf (None Seen) Urine Mucus Few (None Seen) Urine Glucose Normal mg/dL (Normal) Urine Opiates Screen Neg (NEGATIVE) Urine Fentanyl Screen Neg (NEGATIVE) Urine Barbiturates Screen Neg (NEGATIVE) Urine Phencyclidine Screen Neg (NEGATIVE) Urine Amphetamines Screen Neg (NEGATIVE) Urine Benzodiazepines Screen Neg (NEGATIVE) Urine Cocaine Screen Neg (NEGATIVE) Urine Cannabinoids Screen Neg (NEGATIVE) Test 07/22/24 13:27 D-Dimer, Quantitative 0.62 mg/L FEU (0.0-0.49) B-Type Natriuretic Peptide 30.49 pg/mL (0-100) Other Laboratory Tests 07/23/24 04:51 Brief Hx & Hospital Course: This is a 39 years old female with past medical history of diabetes, family history of pulmonary embolism, ovarian cyst, came to emergency department because of chest pain. She also complained of shortness for breath. The patient was admitted. CTA was done. Showed no acute pulmonary embolism. The patient chest pain improved. Troponin level was negative. EKG showed no acute process , no ST change.. Securities Attorney see the patient and did not recommend any further workup except echo. Echo showed EF of 65% with no abnormality. So I am going to discharge her home. Advised her to follow up with primary care physician 1-2 weeks. Activity as tolerated. Diet per home diet. Physical exam: HEENT: Normocephalic atraumatic pupils equal react to light and accommodation. Extraocular muscles intact, conjunctiva pink, oropharynx moist, no thrush, no exudate. Lymphatic: No lymphadenopathy Cardiovascular exam: S1, S2 was heard. No murmurs, rubs, gallops Lung: Clear on auscultation bilaterally, no wheeze, rale, rhonchi. GI: Abdominal soft, nondistended, nontenderness, positive bowel sounds. Extremity: No crepitus, cyanosis, edema. Pedal pulses present bilateral. Full range of motion. Skin: Normal turgor, no rash. Psych: Alert, oriented x3. Neurology: No focal deficits, cranial nerve II to XII grossly intact. This medical document was created using an electronic medical record system with [employer] direct computerized dictation system. Although this document has been carefully reviewed, there may still be some phonetic and typographical errors. These areas are purely typographical due to imperfections of the software programs, and do not reflect any compromise in the patient's medical care. Condition at Discharge: Stable Final Diagnosis/Problems List # Chest pain likely due to pleuritis/costochondritis # Pulmonary embolism ruled out # Acute complicated cystitis # GERD Discharge Disposition: Home Discharge Instruct/Medications Diet: Cardiac 2g Na,low cholest Activity: No Restrictions, As Tolerated Follow Up/Referral: pcp 1-2 weeks Medications: resume home meds Discharge Statement: "Patient was advised to return to the ER or call 911 if any headaches, dizziness, shortness of breath, chest pain, abdominal pain, bleeding, fevers, or worsening of medical condition. Patient was counseled about treatment plan, medications, possible side effects, patientverbalized understanding. All questions were answered to the best of my ability. This discharge took greater then 30 minutes in planning, reviewing documentation, counseling the patient, and discussing with other team members." ASSESSMENT ASSESSMENT Assessment chest pain Date of Service: Jul 24, 2024 Billing Provider: PIPPA RAGSDALE MD Common Visit Codes: 36715-RLM/OBS DISCH DAY >30min PIPPA RAGSDALE MD Jul 24, 2024 14:57
[2024-07-24 15:36] VITALS: BP 154/109; TEMP 36.5
== END 2024-07-24 16:25 | disposition home or self-care (01) | DRG 203 ==
LOC: ER 12:47 → OVERFLOW 16:28 → TELE-WESTW 07-23 17:28
PROVIDERS: ADMIT Internal Medicine; ATTEND Internal Medicine
DX: M94.0 Chondrocostal junction syndrome [Tietze] (principal); E11.9 Type 2 diabetes mellitus without complications; K21.9 Gastro-esophageal reflux disease without esophagitis; Z68.42 Body mass index [BMI] 45.0-49.9, adult; R00.0 Tachycardia, unspecified; N30.00 Acute cystitis without hematuria; Z98.891 History of uterine scar from previous surgery; Z98.51 Tubal ligation status; Z90.710 Acquired absence of both cervix and uterus; Z90.49 Acquired absence of other specified parts of digestive tract; Z83.3 Family history of diabetes mellitus; Z82.49 Family history of ischemic heart disease and other diseases of the circulatory system; Z80.8 Family history of malignant neoplasm of other organs or systems; R09.1 Pleurisy; E66.9 Obesity, unspecified
CPT/HCPCS: 36415; 71045; 71275; 80048; 80061; 80307; 81001; 82962; 83735; 83880; 84484; 85025; 85379; 87086; 93005; 93306; G0378; J1885; J2405; J2470